=== PATIENT | male | born 1980 | race American Indian/Alaskan Native ===

== ENCOUNTER 2018-12-09 22:51 | Emergency (ER) | payer MEDICAID, OTHER ==
[~2018-12-09] VITALS: Ht 182.9 cm; Wt 72.0 kg
[2018-12-09 22:53] VITALS: BP 138/96
[2018-12-09] MEDS ORDERED: CEPH-571 PO (23:31)
[2018-12-09] MEDS ORDERED: cephalexin 250mg capsule PO ONE (23:45)
== END 2018-12-10 | disposition home or self-care (01) ==
LOC: ER 22:51
DX: K08.89 Other specified disorders of teeth and supporting structures (principal); H92.02 Otalgia, left ear; Z88.0 Allergy status to penicillin; Z79.899 Other long term (current) drug therapy
CPT/HCPCS: 99283

== ENCOUNTER 2019-07-04 23:07 | Emergency (ER) | payer MEDICAID ==
[~2019-07-04] VITALS: Ht 182.9 cm; Wt 70.5 kg
[~2019-07-04 23:07] MED LIST: CEPH-571 PO
[2019-07-04 23:15] VITALS: BP 128/83
--- NOTE | 2019-07-04 23:56 | NUR ---
HARRIETT NÚÑEZ AT BEDSIDE
[2019-07-05] MEDS ORDERED: LIDOcaine 1% W/epiNEPHrine 1:200,000 10ml vial IJ ONE
[2019-07-05] MEDS ORDERED: HYDROcodone/acetaminophen 5mg/325mg tablet PO ONE
[2019-07-05] MEDS ORDERED: LIDOcaine 1% 30ml preserv. free vial IJ ONE (00:20)
[2019-07-05] MEDS ORDERED: HYDR-3965 PO (01:11)
== END 2019-07-05 01:57 | disposition home or self-care (01) ==
LOC: ER 23:08
DX: S62.336A Displaced fracture of neck of fifth metacarpal bone, right hand, initial encounter for closed fracture (principal); Z88.0 Allergy status to penicillin; Z79.1 Long term (current) use of non-steroidal anti-inflammatories (NSAID); Z79.899 Other long term (current) drug therapy; W22.8XXA Striking against or struck by other objects, initial encounter; Y93.89 Activity, other specified; Y92.89 Other specified places as the place of occurrence of the external cause; Y99.8 Other external cause status
CPT/HCPCS: 29125; 73120; 73130; 99283